=== PATIENT | male | born 1970 | race Caucasian/White ===

== ENCOUNTER 2018-12-31 10:22 | Outpatient (CLI) | payer BC ==
--- NOTE | 2018-12-31 10:39 | RAD ---
XR Ankle Rt 3 View STANDARD HISTORY: Acute right ankle pain FINDINGS: No fracture or dislocation is identified. The ankle mortise is maintained. No bony destruction or per iosteal reaction is seen.
== END 2018-12-31 10:23 | disposition home or self-care (01) ==
LOC: SCSRAD 10:22
PROVIDERS: ATTEND Family Medicine
DX: M25.571 Pain in right ankle and joints of right foot (principal)
CPT/HCPCS: 36415; 80053; 83036; 84443; 85025; 85652

== ENCOUNTER 2020-07-04 04:28 | Inpatient (IN) | payer BC, SELFPAY ==
[2020-07-04] MEDS ORDERED: Morphine 4 MG/ML VIAL ONE ×2 (04:50→12:48)
[2020-07-04] MEDS ORDERED: Ondansetron PF 4 MG/2 ML Vial ONE (04:50)
[2020-07-04] MEDS ORDERED: hydrALAZINE 20 MG/ML VIAL ONE ×2 (05:29→11:31)
[2020-07-04] MEDS ORDERED: Dextrose 5% in Water 1,000 ML IV PRN (08:29)
[2020-07-04] MEDS ORDERED: Dextrose 50% Abboject 50 ML SYRINGE SLOW IVP PRN (08:29)
[2020-07-04] MEDS ORDERED: Acetaminophen 325 MG TAB PO PRN (08:29)
[2020-07-04] MEDS ORDERED: Morphine 4 MG/ML VIAL SLOW IVP PRN (08:29)
[2020-07-04 08:44] LABS: #Basophils 0.1 thou/uL (0.0-0.2); #Eosinphils 0.2 thou/uL (0.0-0.7); #Lymphocytes 2.6 thou/uL (1.20-3.40); #Monocytes 0.7 thou/uL (0.11-0.59); #Neutrophils 4.2 thou/uL (1.40-6.50); %Basophils 0.9 % (0.0-1.0); %Eosinophils 2.5 % (0.0-10.0); %Lymphocytes 33.7 % (21.0-51.0); %Monocytes 9.4 % (0.0-10.0); %Neutrophils 53.6 % (42.0-75.0); Hemoglobin 13.7 g/dL (14.0-18.0); Mean Corpuscular HGB CONC 32.6 g/dL (32.0-36.0); Mean Corpuscular Hemoglobin 30.2 pg (27.0-31.0); Mean Corpuscular Volume 92.5 fL (78.0-98.0); Mean Platelet Volume 8.9 fL (7.4-10.4); Platelet Count 247 thou/uL (130-400); RBC Distribution Width 11.8 % (11.5-14.5); Red Blood Cell (RBC) Count 4.54 mill/uL (4.70-6.10); White Blood Cell (WBC) Count 7.8 thou/uL (4.8-10.8)
[2020-07-04 08:57] LABS: Hemoglobin A1c 12.4 % (4.0-6.0)
[2020-07-04 09:08] LABS: ALT (SGPT) 7 U/L (8-55); AST (SGOT) 8 U/L (5-34); Albumin 3.3 g/dL (3.5-5.0); Alkaline Phosphatase 117 U/L (40-110); Anion Gap 14 mmol/L (10-20); BUN (Urea Nitrogen) 12 mg/dL (8.9-20.6); Bilirubin, Total 0.3 mg/dL (0.2-1.2); Calc. Creatinine Clearance 0 mL/min (70-130); Calcium 8.6 mg/dL (7.8-10.44); Carbon Dioxide 21 mmol/L (22-29); Chloride 103 mmol/L (98-107); Globulin 2.5 g/dL (2.4-3.5); Glucose 244 mg/dL (70-105); Potassium 3.9 mmol/L (3.5-5.1); Protein, Total 5.8 g/dL (6.0-8.3); Sodium 134 mmol/L (136-145)
[2020-07-04] MEDS ORDERED: Lidocaine 1% (PF) 30 ML VIAL ONE (09:24)
[2020-07-04] MEDS ORDERED: Midazolam HCl 2 mg/2 ml Vial ONE (09:49)
[2020-07-04] MEDS ORDERED: Fentanyl 100 MCG/2 ML VIAL ONE ×2 (09:49→10:47)
[2020-07-04] MEDS ORDERED: Heparin 10,000 UNITS/ 10 ML VIAL ONE (10:34)
[2020-07-04] MEDS ORDERED: Protamine Sulfate 50 MG/5 ML VIAL ONE (10:40)
[2020-07-04] MEDS ORDERED: Aspirin Chewable 81 MG TAB ONE (10:44)
[2020-07-04] MEDS ORDERED: Iopamidol 370 76% 50 ML VIAL FS ONE (10:46)
[2020-07-04] MEDS ORDERED: hydrALAZINE 20 MG/ML VIAL SLOW IVP PRN (10:57)
[2020-07-04 13:40] LABS: SARS-CoV-2 PCR by NAA Not Detected (NotDetected)
[2020-07-04] MEDS ORDERED: Aspirin 325 MG TAB PO SCH (13:58)
[2020-07-04] MEDS ORDERED: Fentanyl 100 MCG/2 ML VIAL SLOW IVP PRN (13:58)
[2020-07-04] MEDS: Sodium Chloride 0.9% 1,000 ML IV SCH ×2 (14:00→15:03)
[2020-07-04 14:06] VITALS: BMI 22.6
[2020-07-04] MEDS: HYDROcodone/Acetaminophen 7.5/325 mg Tablet PO PRN ×2 (14:38→20:04)
[2020-07-04] MEDS: Vancomycin 1 GM in Premix Bag 1 BAG IVPB SCH (16:29)
[2020-07-04] MEDS: Cefepime 1 GM in Sodium Chloride 0.9% 100 ML IVPB SCH (16:29)
[2020-07-04] MEDS: HumaLOG 300 UNITS/3 ML VIAL SC PRN ×2 (16:30→20:01)
[2020-07-04] MEDS: Enoxaparin Sodium 60 MG/0.6 ML SYRINGE SC SCH (20:02)
[2020-07-05] MEDS: Sodium Chloride 0.9% 1,000 ML IV SCH ×2 (01:50→08:34)
[2020-07-05] MEDS: Cefepime 1 GM in Sodium Chloride 0.9% 100 ML IVPB SCH ×2 (04:07→16:42)
[2020-07-05] MEDS: HYDROcodone/Acetaminophen 7.5/325 mg Tablet PO PRN ×3 (04:12→20:20)
[2020-07-05] MEDS: Vancomycin 1 GM in Premix Bag 1 BAG IVPB SCH ×2 (04:43→16:42)
[2020-07-05] MEDS ORDERED: Protamine Sulfate 50 MG/5 ML VIAL ONE ×2 (06:23→06:33)
[2020-07-05] MEDS ORDERED: Heparin 5,000 UNITS/ML VIAL ONE ×2 (06:23→06:33)
[2020-07-05] MEDS ORDERED: Fentanyl 100 MCG/2 ML VIAL ONE (06:37)
[2020-07-05] MEDS ORDERED: Midazolam HCl 2 mg/2 ml Vial ONE (06:37)
[2020-07-05] MEDS ORDERED: Ondansetron PF 4 MG/2 ML Vial ONE (07:31)
[2020-07-05] MEDS ORDERED: Dexamethasone 20 MG/5 ML VIAL ONE (07:31)
[2020-07-05] MEDS ORDERED: PROPOFOL 200 MG/20 ML VIAL ONE (07:31)
[2020-07-05] MEDS ORDERED: Ketorolac Tromethamine 30 MG/ML VIAL ONE (07:31)
[2020-07-05] MEDS ORDERED: PHENYLEPHRINE-NS 100 MCG/ML 10 ML SYRINGE ONE (07:31)
[2020-07-05] MEDS ORDERED: Glycopyrrolate 0.2 MG/ML 5 ML SYRINGE ONE (07:31)
[2020-07-05] MEDS ORDERED: Lidocaine 1% PF 5 ML VIAL ONE (07:31)
[2020-07-05] MEDS ORDERED: Rocuronium Bromide 10 MG/ML (10ML VIAL) ONE (07:31)
[2020-07-05] MEDS: Aspirin 81 mg Enteric Coated Tablet PO SCH (08:34)
[2020-07-05] MEDS ORDERED: Ondansetron HCl/PF 4 MG/2 ML Vial IVP PRN (10:42)
[2020-07-05] MEDS ORDERED: Lactated Ringer's 1,000 ML IV SCH (11:40)
[2020-07-05] MEDS: HumaLOG 300 UNITS/3 ML VIAL SC PRN ×3 (12:35→20:21)
[2020-07-05] MEDS ORDERED: Clopidogrel Bisulfate 75 MG TAB PO SCH (17:15)
[2020-07-05] MEDS: Enoxaparin Sodium 60 MG/0.6 ML SYRINGE SC SCH (20:20)
[2020-07-05] MEDS ORDERED: Atorvastatin Calcium 40 MG TAB PO SCH (21:00)
[2020-07-06] MEDS: HumaLOG 300 UNITS/3 ML VIAL SC PRN ×2 (04:37→11:28)
[2020-07-06] MEDS: Cefepime 1 GM in Sodium Chloride 0.9% 100 ML IVPB SCH (04:37)
[2020-07-06] MEDS: Vancomycin 1 GM in Premix Bag 1 BAG IVPB SCH (05:42)
[2020-07-06] MEDS ORDERED: Glimepiride 4 MG TAB PO SCH (08:00)
[2020-07-06] MEDS: metFORMIN 500 MG TAB PO SCH ×2 (08:06→16:02)
[2020-07-06] MEDS: Aspirin 81 mg Enteric Coated Tablet PO SCH (08:07)
[2020-07-06 08:09] LABS: #Basophils 0.1 thou/uL (0.0-0.2); #Eosinphils 0.2 thou/uL (0.0-0.7); #Lymphocytes 2.2 thou/uL (1.20-3.40); #Neutrophils 6.2 thou/uL (1.40-6.50); %Basophils 0.5 % (0.0-1.0); %Lymphocytes 22.6 % (21.0-51.0); %Monocytes 10.6 % (0.0-10.0); %Neutrophils 64.3 % (42.0-75.0); Hemoglobin 11.5 g/dL (14.0-18.0); Mean Corpuscular HGB CONC 33.3 g/dL (32.0-36.0); Mean Corpuscular Hemoglobin 30.8 pg (27.0-31.0); Mean Corpuscular Volume 92.5 fL (78.0-98.0); Mean Platelet Volume 9.2 fL (7.4-10.4); Platelet Count 231 thou/uL (130-400); RBC Distribution Width 11.9 % (11.5-14.5); Red Blood Cell (RBC) Count 3.74 mill/uL (4.70-6.10); White Blood Cell (WBC) Count 9.6 thou/uL (4.8-10.8)
[2020-07-06 08:14] LABS: Anion Gap 12 mmol/L (10-20); BUN (Urea Nitrogen) 15 mg/dL (8.9-20.6); Calc. Creatinine Clearance 98 mL/min (70-130); Calcium 8.2 mg/dL (7.8-10.44); Carbon Dioxide 22 mmol/L (22-29); Chloride 106 mmol/L (98-107); Glucose 241 mg/dL (70-105); Potassium 3.5 mmol/L (3.5-5.1); Sodium 136 mmol/L (136-145)
[2020-07-06] MEDS: HYDROcodone/Acetaminophen 7.5/325 mg Tablet PO PRN ×2 (08:14→16:02)
[2020-07-06] MEDS ORDERED: Clopidogrel Bisulfate 75 MG TAB PO SCH (09:00)
[2020-07-06] MEDS ORDERED: Empagliflozin 25 MG TAB PO SCH (09:00)
[2020-07-06] MEDS ORDERED: Losartan 25 MG TAB PO SCH (09:00)
[2020-07-06 17:41] VITALS: BP 130/89; TEMP 98.8
== END 2020-07-06 19:15 | disposition home or self-care (01) | DRG 253 ==
LOC: ERS 04:28 → ERHOLD 05:36 → T4-A 13:41
PROVIDERS: ADMIT Internal Medicine; ATTEND Internal Medicine
PROC: B41D1ZZ Fluoroscopy of Aorta and Bilateral Lower Extremity Arteries using Low Osmolar Contrast (ICD-10-PCS; principal; 2020-07-04)
PROC: 047C3DZ Dilation of Right Common Iliac Artery with Intraluminal Device, Percutaneous Approach (ICD-10-PCS; 2020-07-04)
PROC: 041K09N Bypass Right Femoral Artery to Posterior Tibial Artery with Autologous Venous Tissue, Open Approach (ICD-10-PCS; 2020-07-05)
PROC: 06BP0ZZ Excision of Right Saphenous Vein, Open Approach (ICD-10-PCS; 2020-07-05)
DX: E11.52 Type 2 diabetes mellitus with diabetic peripheral angiopathy with gangrene (principal); I96 Gangrene, not elsewhere classified; E11.621 Type 2 diabetes mellitus with foot ulcer; E78.5 Hyperlipidemia, unspecified; E03.9 Hypothyroidism, unspecified; I10 Essential (primary) hypertension; I77.1 Stricture of artery; L97.519 Non-pressure chronic ulcer of other part of right foot with unspecified severity; F17.210 Nicotine dependence, cigarettes, uncomplicated; Z79.84 Long term (current) use of oral hypoglycemic drugs; Z91.14 Patient's other noncompliance with medication regimen; Z83.3 Family history of diabetes mellitus; Z82.49 Family history of ischemic heart disease and other diseases of the circulatory system
CPT/HCPCS: 36246; 36415; 36416; 37221; 74185; 75716; 76942; 80048; 80053; 83036; 85025; 85347; 86850; 86900; 86901; 87635; 96374; 96375; 99152; 99153; C1876; C8902; C8914; J0360; J0692; J1100; J1642; J1644; J1650; J1815; J1885; J2001; J2250; J2270; J2405; J2704; J2720; J3010; J3370; J3490; Q9967; U0003; U0005

== ENCOUNTER 2020-08-18 15:35 | Outpatient (CLI) | payer SELFPAY ==
[2020-08-18 16:43] VITALS: BMI 24.0
[2020-08-18 16:48] LABS: Hemoglobin 14.5 g/dL (13.5-17.5); Mean Corpuscular HGB CONC 33.3 g/dL (32.0-36.0); Mean Corpuscular Hemoglobin 30.2 pg (27.0-33.0); Mean Corpuscular Volume 90.8 fl (81.2-95.1); Mean Platelet Volume 11.4 fl (7.4-10.4); Platelet Count 262 10x3/uL (150-450); RBC Distribution Width 13.1 % (11.5-14.5)
[2020-08-18 16:57] LABS: Anion Gap 16 mmol/L (10-20); BUN (Urea Nitrogen) 15 mg/dL (8.9-20.6); Calc. Creatinine Clearance 84 mL/min (70-130); Calcium 10.1 mg/dL (7.8-10.44); Carbon Dioxide 23 mmol/L (22-29); Chloride 100 mmol/L (98-107); Glucose 368 mg/dL (70-105); Potassium 4.8 mmol/L (3.5-5.1); Sodium 134 mmol/L (136-145)
[2020-08-19 12:11] LABS: SARS-CoV-2 PCR by NAA Not Detected (NotDetected)
== END 2020-08-18 15:36 | disposition home or self-care (01) ==
LOC: LABBT 15:35
PROVIDERS: ATTEND Thoracic Surgery (Cardiothoracic Vascular Surgery)
DX: Z01.818 Encounter for other preprocedural examination (principal); I73.9 Peripheral vascular disease, unspecified; Z20.822 Contact with and (suspected) exposure to COVID-19
CPT/HCPCS: 80048; 85027; 93005; 93010; U0003; U0005

== ENCOUNTER 2020-08-24 16:30 | Outpatient (CLI) | payer SELFPAY ==
[2020-08-24 17:33] LABS: Mean Corpuscular HGB CONC 32.9 g/dL (32.0-36.0); Mean Corpuscular Volume 91.2 fl (81.2-95.1); Mean Platelet Volume 11.5 fl (7.4-10.4); Platelet Count 265 10x3/uL (150-450); RBC Distribution Width 13.1 % (11.5-14.5); White Blood Cell (WBC) Count 10.4 10x3/uL (3.5-10.5)
[2020-08-24 17:48] LABS: Anion Gap 18 mmol/L (10-20); BUN (Urea Nitrogen) 16 mg/dL (8.9-20.6); Calc. Creatinine Clearance 0 mL/min (70-130); Calcium 10.2 mg/dL (7.8-10.44); Carbon Dioxide 24 mmol/L (22-29); Chloride 99 mmol/L (98-107); Glucose 428 mg/dL (70-105); Potassium 4.6 mmol/L (3.5-5.1); Sodium 136 mmol/L (136-145)
[2020-08-24 18:30] LABS: SARS-CoV-2 NAA Rapid Test Not Detected (NotDetected)
== END 2020-08-24 16:31 | disposition home or self-care (01) ==
LOC: LABBT 16:30
PROVIDERS: ATTEND Thoracic Surgery (Cardiothoracic Vascular Surgery)
DX: Z01.812 Encounter for preprocedural laboratory examination (principal); I73.9 Peripheral vascular disease, unspecified; Z20.822 Contact with and (suspected) exposure to COVID-19
CPT/HCPCS: 80048; 85027; U0002

== ENCOUNTER 2022-05-08 22:51 | Observation (INO) | payer SELFPAY ==
[2022-05-08 23:28] LABS: #Basophils 0.1 thou/uL (0.0-0.2); #Eosinphils 0.4 thou/uL (0.0-0.7); #Lymphocytes 4.5 thou/uL (1.20-3.40); #Monocytes 0.8 thou/uL (0.11-0.59); #Neutrophils 4.2 thou/uL (1.40-6.50); %Basophils 0.7 % (0.0-1.0); %Eosinophils 3.7 % (0.0-10.0); %Lymphocytes 45.3 % (21.0-51.0); %Neutrophils 42.3 % (42.0-75.0); Hemoglobin 14.8 g/dL (14.0-18.0); Mean Corpuscular HGB CONC 35.2 g/dL (32.0-36.0); Mean Corpuscular Hemoglobin 32.4 pg (27.0-31.0); Mean Corpuscular Volume 92.2 fl (78.0-98.0); Mean Platelet Volume 9.3 fL (7.4-10.4); Platelet Count 220 10x3/uL (130-400); RBC Distribution Width 11.5 % (11.5-14.5); Red Blood Cell (RBC) Count 4.58 mill/uL (4.70-6.10); White Blood Cell (WBC) Count 9.9 10x3/uL (4.8-10.8)
[2022-05-08 23:48] LABS: ALT (SGPT) 10 U/L (8-55); AST (SGOT) 13 U/L (5-34); Albumin 3.8 g/dL (3.5-5.0); Alkaline Phosphatase 112 U/L (40-110); Anion Gap 14 mmol/L (10-20); BUN (Urea Nitrogen) 39 mg/dL (8.4-25.7); Bilirubin, Total 0.2 mg/dL (0.2-1.2); Calc. Creatinine Clearance 0 mL/min (70-130); Calcium 9.2 mg/dL (7.8-10.44); Carbon Dioxide 26 mmol/L (22-29); Chloride 102 mmol/L (98-107); Estimated GFR 46; Globulin 2.9 g/dL (2.4-3.5); Glucose 257 mg/dL (70-105); Potassium 4.5 mmol/L (3.5-5.1); Protein, Total 6.7 g/dL (6.0-8.3); Sodium 137 mmol/L (136-145)
[2022-05-09] MEDS ORDERED: Aspirin Chewable 81 MG TAB ONE (00:07)
[2022-05-09 00:10] LABS: CKMB 3.6 ng/mL (0-6.6)
[2022-05-09] MEDS ORDERED: HumaLOG 300 UNITS/3 ML VIAL SC PRN (01:09)
[2022-05-09] MEDS ORDERED: Dextrose 5% in Water 1,000 ML IV PRN (01:09)
[2022-05-09] MEDS ORDERED: Dextrose 50% Abboject 50 ML SYRINGE SLOW IVP PRN (01:09)
[2022-05-09 02:43] LABS: Troponin I 0.043 ng/mL (< 0.028)
[2022-05-09 03:53] LABS: #Basophils 0.1 thou/uL (0.0-0.2); #Eosinphils 0.4 thou/uL (0.0-0.7); #Lymphocytes 3.2 thou/uL (1.20-3.40); #Monocytes 0.7 thou/uL (0.11-0.59); %Basophils 0.6 % (0.0-1.0); %Monocytes 7.6 % (0.0-10.0); %Neutrophils 53.8 % (42.0-75.0); Hemoglobin 14.4 g/dL (14.0-18.0); Mean Corpuscular HGB CONC 34.5 g/dL (32.0-36.0); Mean Corpuscular Hemoglobin 31.7 pg (27.0-31.0); Mean Platelet Volume 9.2 fL (7.4-10.4); Platelet Count 210 10x3/uL (130-400); RBC Distribution Width 11.5 % (11.5-14.5); Red Blood Cell (RBC) Count 4.53 mill/uL (4.70-6.10); White Blood Cell (WBC) Count 9.3 10x3/uL (4.8-10.8)
[2022-05-09 04:11] LABS: Anion Gap 15 mmol/L (10-20); BUN (Urea Nitrogen) 37 mg/dL (8.4-25.7); Calc. Creatinine Clearance 0 mL/min (70-130); Carbon Dioxide 25 mmol/L (22-29); Chloride 101 mmol/L (98-107); Estimated GFR 52; Glucose 190 mg/dL (70-105); Potassium 4.5 mmol/L (3.5-5.1); Sodium 136 mmol/L (136-145)
[2022-05-09 06:22] LABS: Troponin I 0.045 ng/mL (< 0.028)
[2022-05-09] MEDS ORDERED: Ondansetron ODT 4 MG TAB PO PRN (08:59)
[2022-05-09] MEDS ORDERED: Ondansetron PF 4 MG/2 ML Vial IVP PRN (08:59)
[2022-05-09] MEDS ORDERED: Metoprolol Tartrate 50 MG TAB PO SCH (09:00)
[2022-05-09] MEDS ORDERED: Empagliflozin 25 MG TAB PO SCH (09:00)
[2022-05-09] MEDS ORDERED: Amlodipine 5 MG TAB PO SCH (09:00)
[2022-05-09] MEDS ORDERED: Hydrochlorothiazide 25 MG TAB PO SCH (09:00)
[2022-05-09] MEDS ORDERED: Lisinopril 20 MG TAB PO SCH (09:00)
[2022-05-09] MEDS ORDERED: Acetaminophen 325 MG TAB PO PRN (09:00)
[2022-05-09 09:40] VITALS: BMI 22.8
[2022-05-09] MEDS ORDERED: hydrALAZINE 20 MG/ML VIAL SLOW IVP PRN (13:41)
[2022-05-09 16:34] VITALS: BP 118/56; TEMP 98.5
[2022-05-09] MEDS ORDERED: Venlafaxine 75 MG TAB PO SCH (21:00)
== END 2022-05-09 18:08 | disposition home or self-care (01) ==
LOC: ERS 22:51 → ERHOLD 05-09 00:47 → 2SW 05-09 08:20
PROVIDERS: ADMIT Family Medicine; ATTEND Nurse Practitioner Family
DX: I16.1 Hypertensive emergency (principal); N17.9 Acute kidney failure, unspecified; I21.4 Non-ST elevation (NSTEMI) myocardial infarction; I10 Essential (primary) hypertension; E11.9 Type 2 diabetes mellitus without complications; Z91.14 Patient's other noncompliance with medication regimen; Z87.891 Personal history of nicotine dependence; Z79.84 Long term (current) use of oral hypoglycemic drugs; Z79.82 Long term (current) use of aspirin; Z79.899 Other long term (current) drug therapy; Z59.02 Unsheltered homelessness
CPT/HCPCS: 36415; 36416; 71045; 80048; 80053; 82553; 84484; 85025; 93005; 96372; 96374; G0378; J0360; J1650

== ENCOUNTER 2022-05-10 14:00 | Inpatient (IN) | payer SELFPAY ==
[~2022-05-10 14:00] MED LIST: Iopamidol-370 76% 500 ML MDV (1 ML CHARGE) ONE
[2022-05-10 15:48] LABS: #Basophils 0.1 thou/uL (0.0-0.2); #Eosinphils 0.1 thou/uL (0.0-0.7); #Monocytes 0.6 thou/uL (0.11-0.59); #Neutrophils 6.1 thou/uL (1.40-6.50); %Basophils 0.5 % (0.0-1.0); %Eosinophils 0.9 % (0.0-10.0); %Lymphocytes 30.1 % (21.0-51.0); %Monocytes 6.2 % (0.0-10.0); %Neutrophils 62.3 % (42.0-75.0); Hemoglobin 17.4 g/dL (14.0-18.0); Mean Corpuscular Hemoglobin 31.1 pg (27.0-31.0); Mean Corpuscular Volume 91.6 fl (78.0-98.0); Mean Platelet Volume 9.4 fL (7.4-10.4); Platelet Count 251 10x3/uL (130-400); RBC Distribution Width 11.8 % (11.5-14.5); White Blood Cell (WBC) Count 9.8 10x3/uL (4.8-10.8)
[2022-05-10 16:04] LABS: ALT (SGPT) 10 U/L (8-55); AST (SGOT) 15 U/L (5-34); Albumin 4.5 g/dL (3.5-5.0); Alkaline Phosphatase 127 U/L (40-110); Anion Gap 23 mmol/L (10-20); BUN (Urea Nitrogen) 31 mg/dL (8.4-25.7); Bilirubin, Total 0.5 mg/dL (0.2-1.2); Calc. Creatinine Clearance 0 mL/min (70-130); Calcium 10.2 mg/dL (7.8-10.44); Carbon Dioxide 19 mmol/L (22-29); Chloride 98 mmol/L (98-107); Estimated GFR 53; Globulin 3.6 g/dL (2.4-3.5); Glucose 207 mg/dL (70-105); Lipase 30 U/L (8-78); Magnesium 2.1 mg/dL (1.6-2.6); Potassium 5.1 mmol/L (3.5-5.1); Protein, Total 8.1 g/dL (6.0-8.3); Sodium 135 mmol/L (136-145)
[2022-05-10 16:18] LABS: CKMB 3.1 ng/mL (0-6.6)
[2022-05-10 17:26] LABS: Acetaminophen Less than 10.0 mcg/mL (10.0-30.0); Alcohol Less than 10 mg/dL (Less than 10); Salicylate Less than 8.0 mg/dL (15.0-30.0)
[2022-05-10] MEDS ORDERED: Dextrose 50% Abboject 50 ML SYRINGE SLOW IVP PRN (19:56)
[2022-05-10] MEDS ORDERED: HumaLOG 300 UNITS/3 ML VIAL SC PRN ×2 (19:56)
[2022-05-10] MEDS ORDERED: Acetaminophen 325 MG TAB PO PRN (19:56)
[2022-05-10] MEDS ORDERED: Ondansetron PF 4 MG/2 ML Vial IVP PRN (19:56)
[2022-05-10] MEDS ORDERED: Dextrose 5% in Water 1,000 ML IV PRN (19:56)
[2022-05-10] MEDS ORDERED: Ondansetron ODT 4 MG TAB PO PRN (19:56)
[2022-05-10] MEDS ORDERED: HYDROcodone/Acetaminophen 5/325 mg Tablet PO PRN (19:56)
[2022-05-10] MEDS ORDERED: Nitroglycerin 0.4 MG TAB (25 Tab Bottle) SL PRN (19:56)
[2022-05-10 20:18] LABS: Lactic Acid 1.3 mmol/L (0.5-2.2)
[2022-05-10] MEDS ORDERED: Aspirin Chewable 81 MG TAB PO SCH (20:30)
[2022-05-10] MEDS ORDERED: Apixaban 5 MG TAB PO SCH (21:00)
[2022-05-10 21:46] LABS: Troponin I 0.042 ng/mL (< 0.028)
[2022-05-10 22:52] VITALS: BMI 21.9
[2022-05-10] MEDS: Venlafaxine 75 MG TAB PO SCH (23:24)
[2022-05-10] MEDS ORDERED: Famotidine 20 MG TAB PO SCH (23:30)
[2022-05-10 23:48] LABS: Troponin I 0.064 ng/mL (< 0.028)
[2022-05-11] MEDS: Sodium Chloride 0.9% 1,000 ML IV SCH ×2 (03:36→16:50)
[2022-05-11 05:27] LABS: #Basophils 0.1 thou/uL (0.0-0.2); #Eosinphils 0.3 thou/uL (0.0-0.7); #Lymphocytes 4.6 thou/uL (1.20-3.40); #Monocytes 0.9 thou/uL (0.11-0.59); #Neutrophils 3.6 thou/uL (1.40-6.50); %Basophils 0.7 % (0.0-1.0); %Eosinophils 3.4 % (0.0-10.0); %Lymphocytes 48.7 % (21.0-51.0); %Monocytes 9.4 % (0.0-10.0); %Neutrophils 37.8 % (42.0-75.0); Hemoglobin 15.1 g/dL (14.0-18.0); Mean Corpuscular HGB CONC 35.6 g/dL (32.0-36.0); Mean Corpuscular Hemoglobin 32.4 pg (27.0-31.0); Platelet Count 212 10x3/uL (130-400); RBC Distribution Width 11.5 % (11.5-14.5); Red Blood Cell (RBC) Count 4.66 mill/uL (4.70-6.10); White Blood Cell (WBC) Count 9.5 10x3/uL (4.8-10.8)
[2022-05-11 05:52] LABS: Anion Gap 14 mmol/L (10-20); BUN (Urea Nitrogen) 31 mg/dL (8.4-25.7); Calc. Creatinine Clearance 59 mL/min (70-130); Calcium 9.6 mg/dL (7.8-10.44); Carbon Dioxide 24 mmol/L (22-29); Cardiac Risk 6.9 (Less than 4.5); Chloride 102 mmol/L (98-107); Cholesterol 227 mg/dl (< 200 Desired); Estimated GFR 58; Glucose 214 mg/dL (70-105); HDL Cholesterol 33 mg/dL (>60 Neg Risk); LDL Cholesterol, Calculated 129 mg/dL; Potassium 4.8 mmol/L (3.5-5.1); Sodium 135 mmol/L (136-145); Triglycerides 324 mg/dL (Less than 150)
[2022-05-11 07:44] LABS: Troponin I 0.059 ng/mL (< 0.028)
[2022-05-11] MEDS ORDERED: glyBURIDE 5 MG TAB PO SCH ×2 (08:00→09:00)
[2022-05-11] MEDS ORDERED: metFORMIN 500 MG TAB PO SCH (08:00)
[2022-05-11] MEDS: Aspirin 81 mg Enteric Coated Tablet PO SCH (08:41)
[2022-05-11] MEDS: Famotidine 20 MG TAB PO SCH ×2 (08:41→20:24)
[2022-05-11] MEDS ORDERED: Aspirin Chewable 81 MG TAB PO SCH (09:00)
[2022-05-11] MEDS ORDERED: Empagliflozin 25 MG TAB PO SCH (09:00)
[2022-05-11] MEDS ORDERED: ADENOSINE 60 MG/20 ML SDV ONE (10:00)
[2022-05-11] MEDS: glyBURIDE 5 MG TAB PO SCH (16:50)
[2022-05-11] MEDS: Venlafaxine 75 MG TAB PO SCH (20:25)
[2022-05-11] MEDS ORDERED: Amlodipine 5 MG TAB PO SCH (20:30)
[2022-05-11 20:50] LABS: Amphetamine Not Detected (NotDetected); Barbiturates Screen Not Detected (NotDetected); Benzodiazepine Screen Not Detected (NotDetected); Cocaine Metabolite Screen Not Detected (NotDetected); Methadone Not Detected (NotDetected); Methamphetamine Not Detected (NotDetected); Opiate Screen Not Detected (NotDetected); Oxycodone Screen Not Detected (NotDetected); Phencyclidine (PCP) Not Detected (NotDetected); THC/Cannabinoid Screen Detected (NotDetected); Tricyclic Screen Not Detected (NotDetected)
[2022-05-11] MEDS: Metoprolol Tartrate 25 MG TAB PO SCH (21:12)
[2022-05-12] MEDS: Sodium Chloride 0.9% 1,000 ML IV SCH ×2 (05:34→16:31)
[2022-05-12 05:53] LABS: #Basophils 0.1 thou/uL (0.0-0.2); #Eosinphils 0.5 thou/uL (0.0-0.7); #Lymphocytes 4.7 thou/uL (1.20-3.40); %Basophils 0.6 % (0.0-1.0); %Lymphocytes 46.2 % (21.0-51.0); %Monocytes 9.8 % (0.0-10.0); %Neutrophils 38.5 % (42.0-75.0); Mean Corpuscular HGB CONC 35.3 g/dL (32.0-36.0); Mean Corpuscular Volume 90.8 fl (78.0-98.0); Mean Platelet Volume 9.5 fL (7.4-10.4); Platelet Count 202 10x3/uL (130-400); RBC Distribution Width 11.3 % (11.5-14.5); Red Blood Cell (RBC) Count 4.68 mill/uL (4.70-6.10); White Blood Cell (WBC) Count 10.3 10x3/uL (4.8-10.8)
[2022-05-12 06:15] LABS: Anion Gap 12 mmol/L (10-20); BUN (Urea Nitrogen) 27 mg/dL (8.4-25.7); Calc. Creatinine Clearance 63 mL/min (70-130); Calcium 9.2 mg/dL (7.8-10.44); Carbon Dioxide 24 mmol/L (22-29); Chloride 106 mmol/L (98-107); Estimated GFR 64; Glucose 107 mg/dL (70-105); Potassium 4.7 mmol/L (3.5-5.1); Sodium 137 mmol/L (136-145)
[2022-05-12] MEDS: glyBURIDE 5 MG TAB PO SCH ×2 (08:12→16:31)
[2022-05-12] MEDS: Famotidine 20 MG TAB PO SCH ×2 (08:12→20:48)
[2022-05-12] MEDS: Metoprolol Tartrate 25 MG TAB PO SCH ×2 (08:12→20:48)
[2022-05-12] MEDS: Aspirin 81 mg Enteric Coated Tablet PO SCH (08:12)
[2022-05-12] MEDS: Venlafaxine 75 MG TAB PO SCH (20:48)
[2022-05-12] MEDS ORDERED: Amlodipine 10 MG TAB PO SCH (23:59)
[2022-05-13 04:45] LABS: #Basophils 0.1 thou/uL (0.0-0.2); #Eosinphils 0.4 thou/uL (0.0-0.7); #Lymphocytes 3.9 thou/uL (1.20-3.40); #Monocytes 0.8 thou/uL (0.11-0.59); #Neutrophils 3.2 thou/uL (1.40-6.50); %Basophils 0.8 % (0.0-1.0); %Eosinophils 5.2 % (0.0-10.0); %Lymphocytes 46.2 % (21.0-51.0); %Monocytes 9.5 % (0.0-10.0); %Neutrophils 38.3 % (42.0-75.0); Hemoglobin 14.5 g/dL (14.0-18.0); Mean Corpuscular HGB CONC 33.1 g/dL (32.0-36.0); Mean Corpuscular Hemoglobin 30.2 pg (27.0-31.0); Mean Corpuscular Volume 91.3 fl (78.0-98.0); Mean Platelet Volume 9.2 fL (7.4-10.4); Platelet Count 200 10x3/uL (130-400); RBC Distribution Width 11.3 % (11.5-14.5); White Blood Cell (WBC) Count 8.4 10x3/uL (4.8-10.8)
[2022-05-13 05:12] LABS: Anion Gap 12 mmol/L (10-20); BUN (Urea Nitrogen) 24 mg/dL (8.4-25.7); Calc. Creatinine Clearance 71 mL/min (70-130); Calcium 9.1 mg/dL (7.8-10.44); Carbon Dioxide 23 mmol/L (22-29); Chloride 107 mmol/L (98-107); Estimated GFR 74; Glucose 189 mg/dL (70-105); Potassium 4.5 mmol/L (3.5-5.1); Sodium 137 mmol/L (136-145)
[2022-05-13] MEDS: Sodium Chloride 0.9% 1,000 ML IV SCH (05:45)
[2022-05-13] MEDS: Amlodipine 10 MG TAB PO SCH (09:06)
[2022-05-13] MEDS: Aspirin 81 mg Enteric Coated Tablet PO SCH (09:06)
[2022-05-13] MEDS: glyBURIDE 5 MG TAB PO SCH ×2 (09:07→18:08)
[2022-05-13] MEDS: Famotidine 20 MG TAB PO SCH ×2 (09:07→20:35)
[2022-05-13] MEDS: Lisinopril 20 MG TAB PO SCH ×2 (09:07→20:35)
[2022-05-13] MEDS: Metoprolol Tartrate 50 MG TAB PO SCH ×2 (09:07→20:36)
[2022-05-13] MEDS ORDERED: Communication Order-Pharmacy FS PRN (11:00)
[2022-05-13] MEDS: Atorvastatin Calcium 40 MG TAB PO SCH (20:35)
[2022-05-13] MEDS: Venlafaxine 75 MG TAB PO SCH (20:35)
[2022-05-14 04:50] LABS: #Basophils 0.1 thou/uL (0.0-0.2); #Eosinphils 0.4 thou/uL (0.0-0.7); #Lymphocytes 3.8 thou/uL (1.20-3.40); #Monocytes 0.7 thou/uL (0.11-0.59); #Neutrophils 3.9 thou/uL (1.40-6.50); %Basophils 0.7 % (0.0-1.0); %Eosinophils 4.1 % (0.0-10.0); %Neutrophils 44.1 % (42.0-75.0); Hemoglobin 14.4 g/dL (14.0-18.0); Mean Corpuscular HGB CONC 32.6 g/dL (32.0-36.0); Mean Corpuscular Hemoglobin 30.2 pg (27.0-31.0); Mean Corpuscular Volume 92.7 fl (78.0-98.0); Mean Platelet Volume 9.3 fL (7.4-10.4); Platelet Count 222 10x3/uL (130-400); RBC Distribution Width 11.4 % (11.5-14.5); Red Blood Cell (RBC) Count 4.77 mill/uL (4.70-6.10); White Blood Cell (WBC) Count 8.8 10x3/uL (4.8-10.8)
[2022-05-14 05:21] LABS: Anion Gap 12 mmol/L (10-20); BUN (Urea Nitrogen) 22 mg/dL (8.4-25.7); Calc. Creatinine Clearance 74 mL/min (70-130); Calcium 9.1 mg/dL (7.8-10.44); Carbon Dioxide 23 mmol/L (22-29); Chloride 106 mmol/L (98-107); Estimated GFR 77; Glucose 200 mg/dL (70-105); Potassium 4.3 mmol/L (3.5-5.1); Sodium 137 mmol/L (136-145)
[2022-05-14] MEDS: glyBURIDE 5 MG TAB PO SCH ×2 (05:48→17:50)
[2022-05-14] MEDS: Famotidine 20 MG TAB PO SCH ×2 (05:50→20:06)
[2022-05-14] MEDS: Amlodipine 10 MG TAB PO SCH (05:50)
[2022-05-14] MEDS: Aspirin 81 mg Enteric Coated Tablet PO SCH (05:50)
[2022-05-14] MEDS: Lisinopril 20 MG TAB PO SCH ×2 (05:50→20:05)
[2022-05-14] MEDS: Metoprolol Tartrate 50 MG TAB PO SCH (05:51)
[2022-05-14] MEDS ORDERED: Sodium Chloride 0.9% 1,000 ML IV SCH (06:00)
[2022-05-14] MEDS ORDERED: Heparin 10,000 UNITS/ 10 ML VIAL ONE (06:18)
[2022-05-14] MEDS ORDERED: Nitroglycerin 50 MG/250 ML BOT 0 ML ONE (06:18)
[2022-05-14] MEDS ORDERED: Adenosine 6 MG/2 ML VIAL ONE (06:18)
[2022-05-14] MEDS ORDERED: Lidocaine 1% (PF) 30 ML VIAL ONE (06:18)
[2022-05-14] MEDS ORDERED: Midazolam HCl 2 mg/2 ml Vial ONE (07:18)
[2022-05-14] MEDS ORDERED: FENTANYL 50 MCG/ML 1 ML VIAL ONE ×2 (07:18→08:22)
[2022-05-14] MEDS ORDERED: Atropine Sulfate 1 mg/10 ml Syringe ONE (07:54)
[2022-05-14] MEDS ORDERED: Sodium Chloride 0.9% 200 ML IV PRN (08:38)
[2022-05-14] MEDS ORDERED: Acetaminophen/Codeine 30-300mg Tablet PO PRN ×2 (08:38)
[2022-05-14] MEDS ORDERED: Nitroglycerin 0.4 MG TAB (25 Tab Bottle) SL PRN (08:38)
[2022-05-14] MEDS ORDERED: Iopamidol 370 76% 100 ML VIAL ONE (09:10)
[2022-05-14] MEDS: hydrALAZINE 25 MG TAB PO SCH ×2 (14:10→20:05)
[2022-05-14] MEDS: Venlafaxine 75 MG TAB PO SCH (20:05)
[2022-05-14] MEDS: Atorvastatin Calcium 40 MG TAB PO SCH (20:06)
[2022-05-14] MEDS ORDERED: Rosuvastatin 20 MG TAB PO SCH (21:00)
[2022-05-15 05:35] LABS: Anion Gap 12 mmol/L (10-20); BUN (Urea Nitrogen) 24 mg/dL (8.4-25.7); Calc. Creatinine Clearance 83 mL/min (70-130); Calcium 8.7 mg/dL (7.8-10.44); Carbon Dioxide 20 mmol/L (22-29); Chloride 106 mmol/L (98-107); Estimated GFR 88; Glucose 168 mg/dL (70-105); Potassium 3.9 mmol/L (3.5-5.1); Sodium 134 mmol/L (136-145)
[2022-05-15] MEDS ORDERED: Clopidogrel Bisulfate 300 MG TAB PO SCH (08:00)
[2022-05-15] MEDS: Famotidine 20 MG TAB PO SCH (09:24)
[2022-05-15] MEDS: Lisinopril 20 MG TAB PO SCH (09:24)
[2022-05-15] MEDS: glyBURIDE 5 MG TAB PO SCH (09:24)
[2022-05-15] MEDS: Aspirin 81 mg Enteric Coated Tablet PO SCH (09:24)
[2022-05-15] MEDS: Amlodipine 10 MG TAB PO SCH (09:24)
[2022-05-15] MEDS: hydrALAZINE 25 MG TAB PO SCH (09:31)
[2022-05-15 12:18] VITALS: BP 139/80; TEMP 98
[2022-05-16] MEDS ORDERED: Clopidogrel Bisulfate 75 MG TAB PO SCH (09:00)
== END 2022-05-15 14:38 | disposition home or self-care (01) | DRG 281 ==
LOC: ERS 14:00 → 2SW 20:01 → OBSVTOIN 05-13 08:02
PROVIDERS: ADMIT Internal Medicine; ATTEND Internal Medicine
PROC: 4A023N7 Measurement of Cardiac Sampling and Pressure, Left Heart, Percutaneous Approach (ICD-10-PCS; principal; 2022-05-14)
PROC: B2111ZZ Fluoroscopy of Multiple Coronary Arteries using Low Osmolar Contrast (ICD-10-PCS; 2022-05-14)
PROC: B2151ZZ Fluoroscopy of Left Heart using Low Osmolar Contrast (ICD-10-PCS; 2022-05-14)
DX: I25.110 Atherosclerotic heart disease of native coronary artery with unstable angina pectoris (principal); I22.2 Subsequent non-ST elevation (NSTEMI) myocardial infarction; N17.9 Acute kidney failure, unspecified; E11.51 Type 2 diabetes mellitus with diabetic peripheral angiopathy without gangrene; E03.9 Hypothyroidism, unspecified; I10 Essential (primary) hypertension; F32.A Depression, unspecified; Z66 Do not resuscitate; I34.0 Nonrheumatic mitral (valve) insufficiency; F41.9 Anxiety disorder, unspecified; F12.129 Cannabis abuse with intoxication, unspecified; Z79.01 Long term (current) use of anticoagulants; Z79.82 Long term (current) use of aspirin; Z79.899 Other long term (current) drug therapy
CPT/HCPCS: 36415; 36416; 71045; 71275; 78452; 80048; 80053; 80061; 80306; 80307; 82550; 82553; 83605; 83690; 83735; 83880; 84146; 84484; 85025; 93005; 93017; 93306; 93458; 99152; 99153; A9500; C1769; C1894; G0378; J0153; J0461; J1644; J2001; J2250; J3010; J7050; Q9967

== ENCOUNTER 2022-06-26 23:45 | Emergency (ER) | payer SELFPAY ==
[2022-06-27 00:33] LABS: #Basophils 0.1 thou/uL (0.0-0.2); #Eosinphils 0.5 thou/uL (0.0-0.7); #Monocytes 0.8 thou/uL (0.11-0.59); #Neutrophils 3.8 thou/uL (1.40-6.50); %Basophils 0.6 % (0.0-1.0); %Eosinophils 5.3 % (0.0-10.0); %Lymphocytes 41.1 % (21.0-51.0); %Monocytes 9.4 % (0.0-10.0); Hemoglobin 11.4 g/dL (14.0-18.0); Mean Corpuscular HGB CONC 33.7 g/dL (32.0-36.0); Mean Corpuscular Hemoglobin 29.9 pg (27.0-31.0); Mean Corpuscular Volume 88.7 fl (78.0-98.0); Mean Platelet Volume 11.4 fL (7.4-10.4); Platelet Count 234 10x3/uL (130-400); RBC Distribution Width 13.1 % (11.5-14.5); Red Blood Cell (RBC) Count 3.81 mill/uL (4.70-6.10); White Blood Cell (WBC) Count 8.8 10x3/uL (4.8-10.8)
[2022-06-27 00:58] LABS: ALT (SGPT) 13 U/L (8-55); AST (SGOT) 11 U/L (5-34); Albumin 3.6 g/dL (3.5-5.0); Alkaline Phosphatase 121 U/L (40-110); Anion Gap 13 mmol/L (10-20); BUN (Urea Nitrogen) 30 mg/dL (8.4-25.7); Bilirubin, Total 0.3 mg/dL (0.2-1.2); Calc. Creatinine Clearance 0 mL/min (70-130); Calcium 9.2 mg/dL (7.8-10.44); Carbon Dioxide 24 mmol/L (22-29); Chloride 98 mmol/L (98-107); Estimated GFR 57; Globulin 2.8 g/dL (2.4-3.5); Potassium 3.7 mmol/L (3.5-5.1); Protein, Total 6.4 g/dL (6.0-8.3); Sodium 131 mmol/L (136-145)
[2022-06-27 01:23] LABS: Glucose 402 mg/dL (70-105)
[2022-06-27] MEDS ORDERED: Ketorolac Tromethamine 30 MG/ML VIAL ONE (02:47)
[2022-06-27] MEDS ORDERED: HYDROcodone/Acetaminophen 5/325 mg Tablet ONE (04:19)
== END 2022-06-27 07:20 | disposition home or self-care (01) ==
LOC: ERS 23:45
DX: M79.672 Pain in left foot (principal); E11.65 Type 2 diabetes mellitus with hyperglycemia; E11.51 Type 2 diabetes mellitus with diabetic peripheral angiopathy without gangrene; E03.9 Hypothyroidism, unspecified; I10 Essential (primary) hypertension; Z87.891 Personal history of nicotine dependence; Z79.899 Other long term (current) drug therapy
CPT/HCPCS: 36415; 80053; 85025; 85652; 86140; 96374; J1885

== ENCOUNTER 2022-07-24 17:24 | Inpatient (IN) | payer SELFPAY ==
[2022-07-24 20:53] LABS: #Basophils 0.1 thou/uL (0.0-0.2); #Eosinphils 0.5 thou/uL (0.0-0.7); #Monocytes 0.9 thou/uL (0.11-0.59); #Neutrophils 5.8 thou/uL (1.40-6.50); %Basophils 0.6 % (0.0-1.0); %Eosinophils 4.3 % (0.0-10.0); %Lymphocytes 32.2 % (21.0-51.0); %Monocytes 8.1 % (0.0-10.0); %Neutrophils 54.1 % (42.0-75.0); Hemoglobin 11.6 g/dL (14.0-18.0); Mean Corpuscular HGB CONC 33.2 g/dL (32.0-36.0); Mean Corpuscular Hemoglobin 31.4 pg (27.0-31.0); Mean Corpuscular Volume 94.3 fl (78.0-98.0); Mean Platelet Volume 10.3 fL (7.4-10.4); Platelet Count 278 10x3/uL (130-400); RBC Distribution Width 13.8 % (11.5-14.5); White Blood Cell (WBC) Count 10.8 10x3/uL (4.8-10.8)
[2022-07-24] MEDS ORDERED: Ketorolac Tromethamine 30 MG/ML VIAL ONE (21:13)
[2022-07-24] MEDS ORDERED: Cefepime 2 GM VIAL ONE (21:13)
[2022-07-24 21:17] LABS: ALT (SGPT) 10 U/L (8-55); AST (SGOT) 15 U/L (5-34); Albumin 3.8 g/dL (3.5-5.0); Alkaline Phosphatase 113 U/L (40-110); Anion Gap 16 mmol/L (10-20); BUN (Urea Nitrogen) 22 mg/dL (8.4-25.7); Bilirubin, Total 0.2 mg/dL (0.2-1.2); CK (CPK) 54 U/L (30-200); Calc. Creatinine Clearance 0 mL/min (70-130); Calcium 9.2 mg/dL (7.8-10.44); Carbon Dioxide 20 mmol/L (22-29); Chloride 104 mmol/L (98-107); Estimated GFR 63; Globulin 3.2 g/dL (2.4-3.5); Glucose 206 mg/dL (70-105); Potassium 4.6 mmol/L (3.5-5.1); Sodium 135 mmol/L (136-145)
[2022-07-24] MEDS ORDERED: Vancomycin 1 GM/200 ML (FROZEN) BAG ONE (21:55)
[2022-07-24] MEDS ORDERED: HYDROcodone/Acetaminophen 5/325 mg Tablet ONE (22:02)
[2022-07-24] MEDS ORDERED: Ondansetron PF 4 MG/2 ML Vial IVP PRN (22:45)
[2022-07-24] MEDS ORDERED: Ondansetron ODT 4 MG TAB SL PRN (22:45)
[2022-07-24] MEDS ORDERED: Calcium Carbonate 500 MG ChewTAB PO PRN (23:36)
[2022-07-24] MEDS ORDERED: Senokot S 8.6-50 MG TAB PO PRN (23:36)
[2022-07-25] MEDS: Acetaminophen 325 MG TAB PO PRN ×2 (00:05→04:44)
[2022-07-25 00:30] VITALS: BMI 24.3
[2022-07-25] MEDS ORDERED: Vancomycin HCl 500 MG in Sodium Chloride 0.9% 100 ML IVPB SCH (01:30)
[2022-07-25] MEDS: HYDROcodone/Acetaminophen 5/325 mg Tablet PO PRN ×4 (01:43→17:33)
[2022-07-25] MEDS ORDERED: HumaLOG 300 UNITS/3 ML VIAL SC PRN ×2 (02:08)
[2022-07-25] MEDS ORDERED: Dextrose 5% in Water 1,000 ML IV PRN (02:08)
[2022-07-25] MEDS ORDERED: Glucagon 1 MG/ML KIT IM PRN (02:08)
[2022-07-25] MEDS ORDERED: Dextrose 50% Abboject 50 ML SYRINGE SLOW IVP PRN (02:08)
[2022-07-25 06:36] LABS: #Basophils 0.1 thou/uL (0.0-0.2); #Eosinphils 0.5 thou/uL (0.0-0.7); %Basophils 0.7 % (0.0-1.0); %Eosinophils 5.1 % (0.0-10.0); %Lymphocytes 34.8 % (21.0-51.0); %Monocytes 9.6 % (0.0-10.0); %Neutrophils 49.3 % (42.0-75.0); Hemoglobin 11.7 g/dL (14.0-18.0); Mean Corpuscular HGB CONC 32.5 g/dL (32.0-36.0); Mean Corpuscular Volume 95.2 fl (78.0-98.0); Mean Platelet Volume 10.2 fL (7.4-10.4); Platelet Count 265 10x3/uL (130-400); RBC Distribution Width 13.8 % (11.5-14.5); Red Blood Cell (RBC) Count 3.78 mill/uL (4.70-6.10); White Blood Cell (WBC) Count 10.2 10x3/uL (4.8-10.8)
[2022-07-25 06:47] LABS: Hemoglobin A1c 10.9 % (4.0-6.0)
[2022-07-25 06:59] LABS: Anion Gap 11 mmol/L (10-20); BUN (Urea Nitrogen) 21 mg/dL (8.4-25.7); Calc. Creatinine Clearance 75 mL/min (70-130); Calcium 9.2 mg/dL (7.8-10.44); Carbon Dioxide 22 mmol/L (22-29); Chloride 105 mmol/L (98-107); Estimated GFR 69; Glucose 224 mg/dL (70-105); Potassium 4.3 mmol/L (3.5-5.1); Sodium 134 mmol/L (136-145)
[2022-07-25] MEDS ORDERED: Vancomycin 1.5 GRAM/300 ML BAG IVPB SCH (09:00)
[2022-07-25] MEDS: Vancomycin 1 GM in Premix Bag 1 BAG IVPB SCH ×2 (09:14→21:41)
[2022-07-25] MEDS: Famotidine 20 MG TAB PO SCH ×2 (09:14→20:57)
[2022-07-25] MEDS: Aspirin 81 mg Enteric Coated Tablet PO SCH (09:14)
[2022-07-25] MEDS: Amlodipine 5 MG TAB PO SCH ×2 (09:14→20:57)
[2022-07-25] MEDS: Empagliflozin 25 MG TAB PO SCH (09:15)
[2022-07-25] MEDS: HumuLIN 70/30 (300 UNITS/3 ML VIAL) SC SCH ×2 (09:15→20:59)
[2022-07-25] MEDS: Clopidogrel Bisulfate 75 MG TAB PO SCH (09:15)
[2022-07-25] MEDS: Lisinopril 20 MG TAB PO SCH ×2 (09:16→20:56)
[2022-07-25] MEDS: Atorvastatin Calcium 40 MG TAB PO SCH (20:56)
[2022-07-25] MEDS: Venlafaxine 75 MG TAB PO SCH (20:58)
[2022-07-26] MEDS: Lactated Ringer's 1,000 ML IV SCH ×2 (05:45→23:21)
[2022-07-26 07:09] LABS: ALT (SGPT) 8 U/L (8-55); AST (SGOT) 12 U/L (5-34); Albumin 3.9 g/dL (3.5-5.0); Alkaline Phosphatase 111 U/L (40-110); Anion Gap 17 mmol/L (10-20); BUN (Urea Nitrogen) 19 mg/dL (8.4-25.7); Bilirubin, Total 0.2 mg/dL (0.2-1.2); Calc. Creatinine Clearance 92 mL/min (70-130); Calcium 10.1 mg/dL (7.8-10.44); Carbon Dioxide 22 mmol/L (22-29); Chloride 104 mmol/L (98-107); Estimated GFR 88; Globulin 3.3 g/dL (2.4-3.5); Glucose 69 mg/dL (70-105); Potassium 4.3 mmol/L (3.5-5.1); Protein, Total 7.2 g/dL (6.0-8.3); Sodium 139 mmol/L (136-145)
[2022-07-26] MEDS: Amlodipine 5 MG TAB PO SCH ×2 (08:21→21:15)
[2022-07-26] MEDS: Aspirin 81 mg Enteric Coated Tablet PO SCH (08:21)
[2022-07-26] MEDS: Lisinopril 20 MG TAB PO SCH ×2 (08:22→21:16)
[2022-07-26] MEDS: Clopidogrel Bisulfate 75 MG TAB PO SCH (08:22)
[2022-07-26] MEDS ORDERED: Heparin 10,000 UNITS/ 10 ML VIAL ONE ×2 (08:54→10:11)
[2022-07-26] MEDS ORDERED: Lidocaine 1% (PF) 30 ML VIAL ONE (08:54)
[2022-07-26] MEDS ORDERED: Iopamidol 370 76% 100 ML VIAL ONE (09:06)
[2022-07-26] MEDS ORDERED: fentaNYL 50 mcg/mL 1 mL Vial ONE ×2 (09:19→10:15)
[2022-07-26] MEDS ORDERED: Midazolam HCl 2 mg/2 ml Vial ONE (09:19)
[2022-07-26] MEDS ORDERED: Protamine Sulfate 50 MG/5 ML VIAL ONE (10:52)
[2022-07-26] MEDS ORDERED: Vancomycin 1 GM/200 ML (FROZEN) BAG ONE (11:33)
[2022-07-26] MEDS: Vancomycin 1 GM in Premix Bag 1 BAG IVPB SCH ×2 (11:39→21:19)
[2022-07-26] MEDS ORDERED: HYDROcodone/Acetaminophen 5/325 mg Tablet ONE (11:42)
[2022-07-26] MEDS: HYDROcodone/Acetaminophen 5/325 mg Tablet PO PRN ×3 (11:46→21:17)
[2022-07-26] MEDS: Empagliflozin 25 MG TAB PO SCH (15:18)
[2022-07-26] MEDS: Famotidine 20 MG TAB PO SCH ×2 (15:18→21:14)
[2022-07-26 18:06] LABS: Glucose 201 mg/dL (70-105)
[2022-07-26] MEDS: Atorvastatin Calcium 40 MG TAB PO SCH (21:15)
[2022-07-26] MEDS: Venlafaxine 75 MG TAB PO SCH (21:15)
[2022-07-26 21:29] LABS: Glucose 277 mg/dL (70-105)
[2022-07-27] MEDS: HumaLOG 300 UNITS/3 ML VIAL SC PRN ×4 (00:25→20:59)
[2022-07-27] MEDS: Lactated Ringer's 1,000 ML IV SCH ×3 (03:03→20:47)
[2022-07-27] MEDS: HYDROcodone/Acetaminophen 5/325 mg Tablet PO PRN ×3 (05:56→16:23)
[2022-07-27 07:21] LABS: ALT (SGPT) 8 U/L (8-55); AST (SGOT) 11 U/L (5-34); Albumin 3.8 g/dL (3.5-5.0); Alkaline Phosphatase 120 U/L (40-110); Anion Gap 11 mmol/L (10-20); BUN (Urea Nitrogen) 20 mg/dL (8.4-25.7); Bilirubin, Total 0.2 mg/dL (0.2-1.2); Calc. Creatinine Clearance 82 mL/min (70-130); Calcium 9.7 mg/dL (7.8-10.44); Carbon Dioxide 27 mmol/L (22-29); Chloride 101 mmol/L (98-107); Estimated GFR 77; Globulin 3.3 g/dL (2.4-3.5); Glucose 167 mg/dL (70-105); Potassium 3.8 mmol/L (3.5-5.1); Protein, Total 7.1 g/dL (6.0-8.3); Sodium 135 mmol/L (136-145)
[2022-07-27] MEDS: Lisinopril 20 MG TAB PO SCH ×2 (08:09→20:23)
[2022-07-27] MEDS: Empagliflozin 25 MG TAB PO SCH (08:15)
[2022-07-27] MEDS: Famotidine 20 MG TAB PO SCH ×2 (08:15→20:24)
[2022-07-27] MEDS: Aspirin 81 mg Enteric Coated Tablet PO SCH (08:15)
[2022-07-27] MEDS: Amlodipine 5 MG TAB PO SCH ×2 (08:15→20:24)
[2022-07-27] MEDS: Clopidogrel Bisulfate 75 MG TAB PO SCH (08:15)
[2022-07-27] MEDS: Vancomycin 1 GM in Premix Bag 1 BAG IVPB SCH ×2 (10:23→20:59)
[2022-07-27 11:39] LABS: Glucose 303 mg/dL (70-105)
[2022-07-27 17:28] LABS: Glucose 180 mg/dL (70-105)
[2022-07-27] MEDS: Morphine 2 MG/ML VIAL SLOW IVP PRN (20:22)
[2022-07-27] MEDS: Venlafaxine 75 MG TAB PO SCH (20:24)
[2022-07-27] MEDS: Atorvastatin Calcium 40 MG TAB PO SCH (20:24)
[2022-07-28] MEDS: HumaLOG 300 UNITS/3 ML VIAL SC PRN ×2 (04:37→17:42)
[2022-07-28] MEDS: HYDROcodone/Acetaminophen 5/325 mg Tablet PO PRN ×4 (04:37→19:39)
[2022-07-28 07:30] LABS: #Basophils 0.1 thou/uL (0.0-0.2); #Eosinphils 0.4 thou/uL (0.0-0.7); #Monocytes 1.2 thou/uL (0.11-0.59); #Neutrophils 5.7 thou/uL (1.40-6.50); %Basophils 0.5 % (0.0-1.0); %Lymphocytes 25.3 % (21.0-51.0); %Monocytes 11.7 % (0.0-10.0); %Neutrophils 58.1 % (42.0-75.0); Hemoglobin 11.5 g/dL (14.0-18.0); Mean Corpuscular HGB CONC 32.7 g/dL (32.0-36.0); Mean Corpuscular Hemoglobin 30.8 pg (27.0-31.0); Mean Corpuscular Volume 94.4 fl (78.0-98.0); Mean Platelet Volume 10.5 fL (7.4-10.4); Platelet Count 243 10x3/uL (130-400); RBC Distribution Width 13.3 % (11.5-14.5); Red Blood Cell (RBC) Count 3.73 mill/uL (4.70-6.10); White Blood Cell (WBC) Count 9.8 10x3/uL (4.8-10.8)
[2022-07-28 07:46] LABS: Glucose 124 mg/dL (70-105)
[2022-07-28 07:52] LABS: Anion Gap 12 mmol/L (10-20); BUN (Urea Nitrogen) 21 mg/dL (8.4-25.7); Calc. Creatinine Clearance 86 mL/min (70-130); Calcium 9.4 mg/dL (7.8-10.44); Carbon Dioxide 26 mmol/L (22-29); Chloride 100 mmol/L (98-107); Estimated GFR 82; Glucose 120 mg/dL (70-105); Sodium 134 mmol/L (136-145)
[2022-07-28] MEDS: Lisinopril 20 MG TAB PO SCH ×2 (08:26→21:20)
[2022-07-28] MEDS: Famotidine 20 MG TAB PO SCH ×2 (08:27→21:20)
[2022-07-28] MEDS: Amlodipine 5 MG TAB PO SCH ×2 (08:27→21:21)
[2022-07-28] MEDS: Aspirin 81 mg Enteric Coated Tablet PO SCH (08:27)
[2022-07-28] MEDS: Clopidogrel Bisulfate 75 MG TAB PO SCH (08:27)
[2022-07-28] MEDS: HumuLIN 70/30 (300 UNITS/3 ML VIAL) SC SCH ×2 (08:34→21:29)
[2022-07-28] MEDS: Vancomycin 1 GM in Premix Bag 1 BAG IVPB SCH ×2 (08:34→21:26)
[2022-07-28] MEDS: Empagliflozin 25 MG TAB PO SCH (08:34)
[2022-07-28] MEDS: Lactated Ringer's 1,000 ML IV SCH ×2 (10:59→19:41)
[2022-07-28] MEDS: Morphine 2 MG/ML VIAL SLOW IVP PRN (21:17)
[2022-07-28] MEDS: Venlafaxine 75 MG TAB PO SCH (21:20)
[2022-07-28] MEDS: Atorvastatin Calcium 40 MG TAB PO SCH (21:20)
[2022-07-28 21:24] LABS: Vancomycin, Trough 21.3 ug/mL
[2022-07-29] MEDS: Lactated Ringer's 1,000 ML IV SCH ×2 (04:58→15:50)
[2022-07-29] MEDS: HYDROcodone/Acetaminophen 5/325 mg Tablet PO PRN ×4 (05:24→19:32)
[2022-07-29 07:08] LABS: #Basophils 0.1 thou/uL (0.0-0.2); #Eosinphils 0.4 thou/uL (0.0-0.7); #Monocytes 1.3 thou/uL (0.11-0.59); #Neutrophils 6.3 thou/uL (1.40-6.50); %Basophils 0.6 % (0.0-1.0); %Lymphocytes 19.8 % (21.0-51.0); %Monocytes 13.1 % (0.0-10.0); Hemoglobin 11.2 g/dL (14.0-18.0); Mean Corpuscular HGB CONC 31.6 g/dL (32.0-36.0); Mean Corpuscular Hemoglobin 30.4 pg (27.0-31.0); Mean Corpuscular Volume 96.2 fl (78.0-98.0); Mean Platelet Volume 10.5 fL (7.4-10.4); Platelet Count 265 10x3/uL (130-400); RBC Distribution Width 13.3 % (11.5-14.5); Red Blood Cell (RBC) Count 3.68 mill/uL (4.70-6.10); White Blood Cell (WBC) Count 10.2 10x3/uL (4.8-10.8)
[2022-07-29 07:29] LABS: Glucose 117 mg/dL (70-105)
[2022-07-29 07:41] LABS: Anion Gap 13 mmol/L (10-20); BUN (Urea Nitrogen) 22 mg/dL (8.4-25.7); Calc. Creatinine Clearance 92 mL/min (70-130); Calcium 9.3 mg/dL (7.8-10.44); Carbon Dioxide 25 mmol/L (22-29); Chloride 103 mmol/L (98-107); Estimated GFR 88; Glucose 116 mg/dL (70-105); Potassium 4.1 mmol/L (3.5-5.1); Sodium 137 mmol/L (136-145)
[2022-07-29] MEDS: Clopidogrel Bisulfate 75 MG TAB PO SCH (08:44)
[2022-07-29] MEDS: Famotidine 20 MG TAB PO SCH ×2 (08:44→19:43)
[2022-07-29] MEDS: Empagliflozin 25 MG TAB PO SCH (08:44)
[2022-07-29] MEDS: Lisinopril 20 MG TAB PO SCH ×2 (08:44→20:29)
[2022-07-29] MEDS: Aspirin 81 mg Enteric Coated Tablet PO SCH (08:44)
[2022-07-29] MEDS: Amlodipine 5 MG TAB PO SCH ×2 (08:44→20:29)
[2022-07-29] MEDS: Vancomycin HCl 750 MG in Sodium Chloride 0.9% 250 ML 250 ML IVPB SCH ×2 (08:45→22:09)
[2022-07-29] MEDS: HumuLIN 70/30 100 Unit/ ml Vial SC SCH ×2 (09:03→20:26)
[2022-07-29 12:13] LABS: Glucose 196 mg/dL (70-105)
[2022-07-29] MEDS: HumaLOG 300 UNITS/3 ML VIAL SC PRN ×2 (12:38→20:26)
[2022-07-29] MEDS: Atorvastatin Calcium 40 MG TAB PO SCH (19:43)
[2022-07-29] MEDS: Venlafaxine 75 MG TAB PO SCH (19:43)
[2022-07-29] MEDS ORDERED: Morphine 2 MG/ML VIAL SLOW IVP SCH (20:45)
[2022-07-30] MEDS: Lactated Ringer's 1,000 ML IV SCH ×3 (00:50→20:07)
[2022-07-30 07:00] LABS: #Basophils 0.1 thou/uL (0.0-0.2); #Eosinphils 0.5 thou/uL (0.0-0.7); #Monocytes 1.4 thou/uL (0.11-0.59); #Neutrophils 6.7 thou/uL (1.40-6.50); %Basophils 0.5 % (0.0-1.0); %Eosinophils 4.3 % (0.0-10.0); %Lymphocytes 20.7 % (21.0-51.0); %Monocytes 12.5 % (0.0-10.0); %Neutrophils 61.5 % (42.0-75.0); Mean Corpuscular HGB CONC 31.7 g/dL (32.0-36.0); Mean Corpuscular Hemoglobin 30.1 pg (27.0-31.0); Mean Corpuscular Volume 94.8 fl (78.0-98.0); Mean Platelet Volume 10.8 fL (7.4-10.4); Platelet Count 283 10x3/uL (130-400); RBC Distribution Width 13.2 % (11.5-14.5); Red Blood Cell (RBC) Count 3.66 mill/uL (4.70-6.10)
[2022-07-30 07:26] LABS: Anion Gap 10 mmol/L (10-20); BUN (Urea Nitrogen) 18 mg/dL (8.4-25.7); Calc. Creatinine Clearance 93 mL/min (70-130); Calcium 9.1 mg/dL (7.8-10.44); Carbon Dioxide 26 mmol/L (22-29); Chloride 104 mmol/L (98-107); Estimated GFR 89; Glucose 121 mg/dL (70-105); Potassium 4.4 mmol/L (3.5-5.1); Sodium 136 mmol/L (136-145)
[2022-07-30] MEDS: Famotidine 20 MG TAB PO SCH ×2 (09:12→20:06)
[2022-07-30] MEDS: Lisinopril 20 MG TAB PO SCH ×2 (09:12→20:06)
[2022-07-30] MEDS: Aspirin 81 mg Enteric Coated Tablet PO SCH (09:12)
[2022-07-30] MEDS: Amlodipine 5 MG TAB PO SCH ×2 (09:12→20:07)
[2022-07-30] MEDS: Clopidogrel Bisulfate 75 MG TAB PO SCH (09:12)
[2022-07-30] MEDS: HumuLIN 70/30 100 Unit/ ml Vial SC SCH ×2 (09:13→21:48)
[2022-07-30] MEDS: Empagliflozin 25 MG TAB PO SCH (09:13)
[2022-07-30] MEDS: Vancomycin HCl 750 MG in Sodium Chloride 0.9% 250 ML 250 ML IVPB SCH ×2 (10:09→21:48)
[2022-07-30] MEDS ORDERED: HYDROcodone/Acetaminophen 5/325 mg Tablet PO SCH (10:45)
[2022-07-30 12:05] LABS: Glucose 217 mg/dL (70-105)
[2022-07-30] MEDS: HumaLOG 300 UNITS/3 ML VIAL SC PRN ×2 (12:58→21:53)
[2022-07-30] MEDS: Venlafaxine 75 MG TAB PO SCH (20:06)
[2022-07-30] MEDS: Atorvastatin Calcium 40 MG TAB PO SCH (20:07)
[2022-07-30] MEDS: HYDROcodone/Acetaminophen 5/325 mg Tablet PO PRN (20:13)
[2022-07-30 21:40] LABS: Glucose 264 mg/dL (70-105)
[2022-07-30 21:42] LABS: Vancomycin, Trough 15.7 ug/mL
[2022-07-31] MEDS: HYDROcodone/Acetaminophen 5/325 mg Tablet PO PRN ×2 (04:23→23:12)
[2022-07-31] MEDS: Lactated Ringer's 1,000 ML IV SCH (05:40)
[2022-07-31 06:41] LABS: #Basophils 0.1 thou/uL (0.0-0.2); #Eosinphils 0.5 thou/uL (0.0-0.7); #Monocytes 1.3 thou/uL (0.11-0.59); #Neutrophils 6.6 thou/uL (1.40-6.50); %Basophils 0.5 % (0.0-1.0); %Eosinophils 4.3 % (0.0-10.0); %Lymphocytes 24.1 % (21.0-51.0); %Neutrophils 58.6 % (42.0-75.0); Hemoglobin 11.2 g/dL (14.0-18.0); Mean Corpuscular HGB CONC 31.8 g/dL (32.0-36.0); Mean Corpuscular Volume 94.4 fl (78.0-98.0); Mean Platelet Volume 10.6 fL (7.4-10.4); Platelet Count 304 10x3/uL (130-400); RBC Distribution Width 13.2 % (11.5-14.5); Red Blood Cell (RBC) Count 3.73 mill/uL (4.70-6.10); White Blood Cell (WBC) Count 11.2 10x3/uL (4.8-10.8)
[2022-07-31 07:03] LABS: Anion Gap 13 mmol/L (10-20); BUN (Urea Nitrogen) 23 mg/dL (8.4-25.7); Calc. Creatinine Clearance 83 mL/min (70-130); Calcium 9.3 mg/dL (7.8-10.44); Carbon Dioxide 22 mmol/L (22-29); Chloride 104 mmol/L (98-107); Estimated GFR 77; Glucose 146 mg/dL (70-105); Potassium 4.4 mmol/L (3.5-5.1); Sodium 135 mmol/L (136-145)
[2022-07-31] MEDS: Clopidogrel Bisulfate 75 MG TAB PO SCH (08:21)
[2022-07-31] MEDS: Lisinopril 20 MG TAB PO SCH ×2 (08:21→20:24)
[2022-07-31] MEDS: Aspirin 81 mg Enteric Coated Tablet PO SCH (08:21)
[2022-07-31] MEDS: Amlodipine 5 MG TAB PO SCH ×2 (08:21→20:24)
[2022-07-31] MEDS: Famotidine 20 MG TAB PO SCH ×2 (08:21→20:24)
[2022-07-31] MEDS: HumuLIN 70/30 100 Unit/ ml Vial SC SCH ×2 (08:22→20:24)
[2022-07-31] MEDS: Empagliflozin 25 MG TAB PO SCH (08:22)
[2022-07-31] MEDS: Vancomycin HCl 750 MG in Sodium Chloride 0.9% 250 ML 250 ML IVPB SCH ×2 (10:49→21:00)
[2022-07-31] MEDS: cefTRIAXone\\ROCEPHIN 2 GM in Sodium Chloride 0.9% 100 ML IVPB SCH (14:16)
[2022-07-31] MEDS: Gabapentin 100 MG CAP PO SCH ×2 (14:16→20:24)
[2022-07-31] MEDS: Venlafaxine 75 MG TAB PO SCH (20:24)
[2022-07-31] MEDS: Atorvastatin Calcium 40 MG TAB PO SCH (20:24)
[2022-08-01 06:13] LABS: #Basophils 0.1 thou/uL (0.0-0.2); #Eosinphils 0.5 thou/uL (0.0-0.7); #Neutrophils 4.7 thou/uL (1.40-6.50); %Basophils 0.8 % (0.0-1.0); %Lymphocytes 30.7 % (21.0-51.0); %Monocytes 10.8 % (0.0-10.0); %Neutrophils 51.9 % (42.0-75.0); Hemoglobin 11.7 g/dL (14.0-18.0); Mean Corpuscular HGB CONC 31.9 g/dL (32.0-36.0); Mean Corpuscular Hemoglobin 29.9 pg (27.0-31.0); Mean Corpuscular Volume 93.9 fl (78.0-98.0); Mean Platelet Volume 10.4 fL (7.4-10.4); Platelet Count 324 10x3/uL (130-400); RBC Distribution Width 13.2 % (11.5-14.5); Red Blood Cell (RBC) Count 3.91 mill/uL (4.70-6.10); White Blood Cell (WBC) Count 9.1 10x3/uL (4.8-10.8)
[2022-08-01 06:41] LABS: Anion Gap 14 mmol/L (10-20); BUN (Urea Nitrogen) 27 mg/dL (8.4-25.7); Calc. Creatinine Clearance 89 mL/min (70-130); Calcium 9.3 mg/dL (7.8-10.44); Carbon Dioxide 21 mmol/L (22-29); Chloride 106 mmol/L (98-107); Estimated GFR 84; Glucose 140 mg/dL (70-105); Potassium 4.1 mmol/L (3.5-5.1); Sodium 137 mmol/L (136-145)
[2022-08-01] MEDS: Lisinopril 20 MG TAB PO SCH ×2 (08:56→21:01)
[2022-08-01] MEDS: Empagliflozin 25 MG TAB PO SCH (08:56)
[2022-08-01] MEDS: Clopidogrel Bisulfate 75 MG TAB PO SCH (08:56)
[2022-08-01] MEDS: Amlodipine 5 MG TAB PO SCH ×2 (08:56→21:00)
[2022-08-01] MEDS: Famotidine 20 MG TAB PO SCH ×2 (08:56→21:00)
[2022-08-01] MEDS: HumuLIN 70/30 100 Unit/ ml Vial SC SCH ×2 (08:56→21:01)
[2022-08-01] MEDS: Gabapentin 100 MG CAP PO SCH ×3 (08:56→21:01)
[2022-08-01] MEDS: Aspirin 81 mg Enteric Coated Tablet PO SCH (08:56)
[2022-08-01] MEDS: Vancomycin HCl 750 MG in Sodium Chloride 0.9% 250 ML 250 ML IVPB SCH ×2 (10:18→23:39)
[2022-08-01] MEDS: cefTRIAXone\\ROCEPHIN 2 GM in Sodium Chloride 0.9% 100 ML IVPB SCH (14:39)
[2022-08-01] MEDS: Atorvastatin Calcium 40 MG TAB PO SCH (21:00)
[2022-08-01] MEDS: Venlafaxine 75 MG TAB PO SCH (21:00)
[2022-08-02] MEDS: HYDROcodone/Acetaminophen 5/325 mg Tablet PO PRN (01:25)
[2022-08-02 05:37] LABS: #Basophils 0.1 thou/uL (0.0-0.2); #Eosinphils 0.5 thou/uL (0.0-0.7); #Neutrophils 4.7 thou/uL (1.40-6.50); %Basophils 0.8 % (0.0-1.0); %Eosinophils 5.4 % (0.0-10.0); %Lymphocytes 35.3 % (21.0-51.0); %Monocytes 10.5 % (0.0-10.0); %Neutrophils 47.2 % (42.0-75.0); Hemoglobin 12.2 g/dL (14.0-18.0); Mean Corpuscular HGB CONC 32.2 g/dL (32.0-36.0); Mean Corpuscular Hemoglobin 30.6 pg (27.0-31.0); Platelet Count 354 10x3/uL (130-400); Red Blood Cell (RBC) Count 3.99 mill/uL (4.70-6.10); White Blood Cell (WBC) Count 9.8 10x3/uL (4.8-10.8)
[2022-08-02 06:00] LABS: Anion Gap 13 mmol/L (10-20); BUN (Urea Nitrogen) 28 mg/dL (8.4-25.7); Calc. Creatinine Clearance 77 mL/min (70-130); Calcium 9.6 mg/dL (7.8-10.44); Carbon Dioxide 24 mmol/L (22-29); Chloride 105 mmol/L (98-107); Estimated GFR 71; Glucose 150 mg/dL (70-105); Potassium 4.5 mmol/L (3.5-5.1); Sodium 137 mmol/L (136-145)
[2022-08-02 08:06] VITALS: BP 146/87; TEMP 98.2
[2022-08-02] MEDS: Famotidine 20 MG TAB PO SCH (09:38)
[2022-08-02] MEDS: Amlodipine 5 MG TAB PO SCH (09:38)
[2022-08-02] MEDS: Lisinopril 20 MG TAB PO SCH (09:38)
[2022-08-02] MEDS: Clopidogrel Bisulfate 75 MG TAB PO SCH (09:38)
[2022-08-02] MEDS: Aspirin 81 mg Enteric Coated Tablet PO SCH (09:38)
[2022-08-02] MEDS: Gabapentin 100 MG CAP PO SCH ×2 (09:39→15:30)
[2022-08-02] MEDS: Vancomycin HCl 750 MG in Sodium Chloride 0.9% 250 ML 250 ML IVPB SCH (09:39)
[2022-08-02] MEDS: Empagliflozin 25 MG TAB PO SCH (09:39)
[2022-08-02] MEDS: cefTRIAXone\\ROCEPHIN 2 GM in Sodium Chloride 0.9% 100 ML IVPB SCH (14:00)
[2022-08-02] MEDS: HumuLIN 70/30 100 Unit/ ml Vial SC SCH (14:37)
== END 2022-08-02 15:18 | disposition home or self-care (01) | DRG 253 ==
LOC: ERS 17:24 → T4-B 22:00
PROVIDERS: ADMIT Student in an Organized Health Care Education/Training Program; ATTEND Hospitalist
PROC: 047L3DZ Dilation of Left Femoral Artery with Intraluminal Device, Percutaneous Approach (ICD-10-PCS; principal; 2022-07-26)
PROC: B4101ZZ Fluoroscopy of Abdominal Aorta using Low Osmolar Contrast (ICD-10-PCS; 2022-07-26)
DX: E11.51 Type 2 diabetes mellitus with diabetic peripheral angiopathy without gangrene (principal); E87.20 Acidosis, unspecified; L03.116 Cellulitis of left lower limb; I70.92 Chronic total occlusion of artery of the extremities; E11.22 Type 2 diabetes mellitus with diabetic chronic kidney disease; Z79.4 Long term (current) use of insulin; N18.9 Chronic kidney disease, unspecified; I12.9 Hypertensive chronic kidney disease with stage 1 through stage 4 chronic kidney disease, or unspecified chronic kidney disease; F41.9 Anxiety disorder, unspecified; F32.A Depression, unspecified; E78.5 Hyperlipidemia, unspecified; Z79.82 Long term (current) use of aspirin; Z79.899 Other long term (current) drug therapy; Z87.891 Personal history of nicotine dependence; Z98.890 Other specified postprocedural states; Z91.148 Patient's other noncompliance with medication regimen for other reason; Z95.820 Peripheral vascular angioplasty status with implants and grafts; E11.42 Type 2 diabetes mellitus with diabetic polyneuropathy
CPT/HCPCS: 36415; 36416; 37226; 80048; 80053; 80202; 82550; 82947; 83036; 83605; 85025; 85347; 87040; 96365; 96367; 96375; 97139; 99152; 99153; C1725; C1769; C1874; C1887; J0692; J0696; J1644; J1815; J1885; J2001; J2250; J2272; J2720; J3010; J3370; J3370-JW; J3490; J7050; J7070; J7120; Q9967

== ENCOUNTER 2023-11-11 23:57 | Inpatient (IN) | payer SELFPAY ==
[2023-11-12] MEDS ORDERED: Aspirin Chewable 81 MG TAB ONE (01:26)
[2023-11-12 02:31] LABS: #Basophils 0.04 10x3/uL (0.0-0.2); %Basophils 0.5 % (0.0-1.0); %Eosinophils 6.5 % (0.0-10.0); %Monocytes 9.4 % (0.0-10.0); %Neutrophils 47.2 % (42.0-75.0); Hematocrit 38.2 % (42.0-52.0); Hemoglobin 12.8 g/dL (14.0-18.0); Mean Corpuscular HGB CONC 33.5 g/dL (32.0-36.0); Mean Corpuscular Hemoglobin 31.2 pg (27.0-31.0); Mean Corpuscular Volume 93.2 fL (78.0-98.0); Mean Platelet Volume 11.3 fL (7.4-10.4); Platelet Count 207 10x3/uL (130-400)
[2023-11-12 03:29] LABS: Troponin I 0.324 ng/mL (< 0.028)
[2023-11-12 03:30] LABS: ALT (SGPT) 9 U/L (8-55); AST (SGOT) 9 U/L (5-34); Albumin 3.2 g/dL (3.5-5.0); Alkaline Phosphatase 114 U/L (40-110); Anion Gap 12 mmol/L (10-20); BUN (Urea Nitrogen) 19 mg/dL (8.4-25.7); Bilirubin, Total 0.2 mg/dL (0.2-1.2); Calc. Creatinine Clearance 0 mL/min (70-130); Carbon Dioxide 24 mmol/L (22-29); Chloride 101 mmol/L (98-107); Estimated GFR 70; Glucose 401 mg/dL (70-105); Potassium 3.8 mmol/L (3.5-5.1); Protein, Total 6.2 g/dL (6.0-8.3); Sodium 133 mmol/L (136-145)
[2023-11-12] MEDS ORDERED: Furosemide 40 MG TAB ONE (04:20)
[2023-11-12] MEDS ORDERED: Insulin Regular, Human 100 UNIT/ML 10 ML VIAL ONE (04:21)
[2023-11-12] MEDS ORDERED: Nitroglycerin 0.4 MG TAB 1 EACH ONE (04:21)
[2023-11-12] MEDS ORDERED: hydrALAZINE 20 MG/ML VIAL ONE (05:01)
[2023-11-12] MEDS ORDERED: Enoxaparin 80 MG (0.8 mL) SYRINGE ONE (05:02)
[2023-11-12] MEDS ORDERED: Glucagon 1 MG/ML KIT IM PRN (08:41)
[2023-11-12] MEDS ORDERED: Dextrose 5% in Water 1,000 ML IV PRN (08:41)
[2023-11-12] MEDS ORDERED: Dextrose 50% Abboject 50 ML SYRINGE SLOW IVP PRN (08:41)
[2023-11-12] MEDS: Insulin Lispro 100 UNIT/ML 10 ML VIAL SC PRN (09:12)
[2023-11-12] MEDS: Aspirin 81 mg Enteric Coated Tablet PO SCH (09:18)
[2023-11-12] MEDS ORDERED: Metoprolol Tartrate 25 MG TAB ONE (09:24)
[2023-11-12] MEDS ORDERED: Clopidogrel Bisulfate 75 MG TAB ONE (09:24)
[2023-11-12] MEDS: Isosorbide Mononitrate 60 MG ER.TAB PO SCH (09:29)
[2023-11-12] MEDS: Metoprolol Tartrate 25 MG TAB PO SCH (09:29)
[2023-11-12] MEDS: Clopidogrel Bisulfate 75 MG TAB PO SCH (09:29)
[2023-11-12] MEDS: Sodium Chloride 0.9% 1,000 ML IV SCH (09:36)
[2023-11-12] MEDS ORDERED: Iopamidol 370 76% 100 ML VIAL ONE (11:25)
[2023-11-12 16:58] VITALS: BMI 22.2
[2023-11-12] MEDS: Atorvastatin Calcium 40 MG TAB PO SCH (20:05)
[2023-11-12] MEDS: Enoxaparin 80 MG (0.8 mL) SYRINGE SC SCH (20:05)
[2023-11-13 04:47] LABS: Cardiac Risk 5.5 (Less than 4.5)
[2023-11-13] MEDS: Amlodipine 5 MG TAB PO SCH (08:34)
[2023-11-13] MEDS: HumuLIN 70/30 100 Unit/ml 10 ml Vial SC SCH (17:30)
[2023-11-13] MEDS: Enoxaparin 80 MG (0.8 mL) SYRINGE SC SCH (20:13)
[2023-11-14 05:03] LABS: Hematocrit 39.6 % (42.0-52.0); Platelet Count 215 10x3/uL (130-400)
[2023-11-14] MEDS: Lisinopril 20 MG TAB PO SCH (09:00)
[2023-11-14 17:04] VITALS: BP 152/78; TEMP 98.6
== END 2023-11-14 16:30 | disposition home or self-care (01) | DRG 281 ==
LOC: ERS 23:57 → ERHOLD 11-12 05:36 → 2SW 11-12 16:56
PROVIDERS: ADMIT Student in an Organized Health Care Education/Training Program; ATTEND Internal Medicine
DX: I21.4 Non-ST elevation (NSTEMI) myocardial infarction (principal); I16.1 Hypertensive emergency; Z59.00 Homelessness unspecified; I10 Essential (primary) hypertension; E03.9 Hypothyroidism, unspecified; E11.51 Type 2 diabetes mellitus with diabetic peripheral angiopathy without gangrene; F41.9 Anxiety disorder, unspecified; F32.A Depression, unspecified; I25.10 Atherosclerotic heart disease of native coronary artery without angina pectoris; E78.5 Hyperlipidemia, unspecified; Z89.422 Acquired absence of other left toe(s); Z87.891 Personal history of nicotine dependence; Z79.4 Long term (current) use of insulin; Z91.141 Patient's other noncompliance with medication regimen due to financial hardship
CPT/HCPCS: 36415; 36416; 71045; 71275; 80053; 80061; 82565; 83880; 84484; 85014; 85018; 85025; 85049; 85379; 93005; 96372; 96374; 96375; J0360; J1650; J1815; J7030; Q9967